=== PATIENT | male | born 1995 | race Caucasian/White ===

== ENCOUNTER 2019-07-07 20:12 | Emergency (ER) | payer BC, SELFPAY ==
[2019-07-07 20:23] VITALS: BP 128/61; PULSE 80; RESP 18; TEMP 36.8; O2SAT 98; BMI 28.7
--- NOTE | 2019-07-07 20:33 | XR_ITS ---
PROCEDURE: XR HAND RT MIN 3V CLINICAL INDICATION: swollen Pain and swelling COMPARISON: No exams were available for comparison FINDINGS: No fracture or dislocation. No lytic or blastic change. There is normal mineralization. There are scattered faint areas of increased density within the soft tissues which may be due to calcification, foreign bodies, or artifact. Other findings:None. IMPRESSION: 1. No acute fracture. 2. Scattered faint densities within the soft tissues of the fingers. Dictated by: Berry Palencia MD 07/08/2019 05:59 Electronically signed by Berry Palencia MD in [place] 07/08/2019 05:59
--- NOTE | 2019-07-07 20:33 | XR_ITS ---
PROCEDURE: XR FOREARM RT 2V CLINICAL INDICATION: swollen Pain and swelling COMPARISON: No exams were available for comparison FINDINGS: No fracture or dislocation. No lytic or blastic change. There is normal mineralization. The joint spaces are well-preserved. No significant degenerative/arthritic changes. No erosive changes evident. Other findings:None. IMPRESSION: No acute findings. Dictated by: Berry Palencia MD 07/08/2019 05:55 Electronically signed by Berry Palencia MD in [place] 07/08/2019 05:55
[2019-07-07 20:42] LABS: Basophils # 0.1 K/mm3 (0-0.2); Basophils % 0.6 % (0.1-2.0); Eosinophils # 0.3 K/mm3 (0.0-0.4); Eosinophils % 3.1 % (0.1-12.0); Hematocrit 39.8 % (42.0-52.0); Hemoglobin 12.9 g/dL (14.1-18.0); Lymphocytes # 3.1 K/mm3 (0.7-4.5); Lymphocytes % 30.5 % (10-50); Mean Corpuscular HGB Conc 32.5 g/dL (31.8-35.4); Mean Corpuscular Volume 89.3 fl (80-94); Mean Platelet Volume 8.1 fl (7.4-10.4); Monocytes # 0.7 K/mm3 (0.1-1.0); Monocytes % 6.5 % (1.7-9.3); Neutrophils % 59.3 % (37.0-80.0); Platelet Count 316 K/mm3 (142-424); Red Blood Count 4.45 M/mm3 (4.60-6.20); Red Cell Distribution Width 13.2 % (11.5-17.5); White Blood Count 10.1 K/mm3 (4.8-10.8)
[2019-07-07 20:45] LABS: Microscopic, Urine URINE MICROSCOPIC (MICROSCOPIC)
[2019-07-07 20:47] LABS: Appearance,Urine CLEAR (Clear); Bilirubin,Urine Negative (Negative); Blood, Urine Negative (Negative); Color,Urine YELLOW (Yellow); Glucose,Urine (UA) Negative (Negative); Ketones,Urine Negative (Negative); Leukocyte Esterase,Urine Negative (Negative); Nitrate,Urine Negative (Negative); Protein,Urine Negative (Negative); Urobilinogen,Urine 0.2 EU/dl (0.2)
[2019-07-07 20:47] LABS: Chloride 104 mmol/L (98-107); Potassium 3.9 mmoL/L (3.5-5.1); Sodium 139 mmol/L (136-145)
[2019-07-07 20:49] LABS: Alanine Aminotransferase 30 U/L (12-78); Aspartate Amino Transferase 27 U/L (17-59); Blood Urea Nitrogen 10 mg/dl (9-20); Creatinine Clearance Estimated 190 mL/min (50-200); Estimated Glomerular Filt Rate 106 ml/min (>60); GFR (African American) 128 ML/MIN (>60)
[2019-07-07 20:50] LABS: Albumin Level 4.5 g/dl (3.5-5.0); Albumin/Globulin Ratio 1.7 (1.1-1.8); Alkaline Phosphatase 62 U/L (38-126); Anion Gap 13.9 mEq/L (5-15); Bilirubin,Total 0.3 mg/dl (0.2-1.3); Calcium 9.3 mg/dl (8.4-10.2); Carbon Dioxide 25 mmol/L (22.0-30.0); Globulin 2.7 g/dL (1.3-3.2); Glucose 102 mg/dl (74-100); Total Protein,Serum 7.2 g/dl (6.3-8.2); Uric Acid 4.7 mg/dl (3.5-8.5)
[2019-07-07 20:55] LABS: C-Reactive Protein 1.9 mg/L (0-4)
[2019-07-07 20:59] LABS: Bacteria,Urine Trace /lpf; Squamous Epithelial Cell,Urine Occasional #/hpf (0-5); WBC,Urine Occasional #/hpf (0-3)
[2019-07-07 21:12] LABS: Erythrocyte Sedimentation Rate 24 mm/hr (0-15)
[2019-07-07 21:43] VITALS: BP 131/62; PULSE 78; RESP 16; O2SAT 98
--- NOTE | 2019-07-07 21:55 | HMH.EDUPEXT ---
ED Disposition Clinical Impression: Tenosynovitis of right wrist Disposition: Home, Self-Care Condition on Discharge: Good Instructions: DI for Tenosynovitis Additional Instructions: see pcp for follow up and wear splint Prescriptions: predniSONE [Prednisone 20mg Tab] 20 mg PO BID #10 tab Transmission Status: Pending to [facility] Ketorolac Tromethamine [Toradol 10mg tablet] 10 mg PO Q6H 5 Days #10 tab Transmission Status: Pending to [facility] Referrals: Provider,Referral, [Primary Care Provider] - - Critical Care Critical Care Time: No Attestation: On 07/07/19, the high probability of a clinically significant, sudden or life threatening deterioration of the following system(s) required my full and direct attention, intervention and personal management. The time I documented below is in addition to time spent performing reported procedures but includes the following listed in this critical care notation. Medical Decision Making - Medical Records Medical records reviewed: Yes: I reviewed the patient's medical records. - Denis Inquiry Pt receiving controlled substance: No Vital Signs: 07/07/19 20:23 Temperature 98.2 F Temperature Source Oral Pulse Rate [Right Brachial] 80 Respiratory Rate 18 Blood Pressure [Right Arm] 128/61 Blood Pressure Mean [Right Arm] 83 Blood Pressure Source [Right Arm] Automatic Cuff Blood Pressure Position [Right Arm] Sitting 02 Sat by Pulse Oximetry 98 Oxygen Delivery Method Room Air - Lab Data Lab results reviewed: Yes: I reviewed the patient's lab results. Lab Results 07/07/19 20:30: WBC 10.1, RBC 4.45 L, Hgb 12.9 L, Hct 39.8 L, MCV 89.3, MCH 29.0, MCHC 32.5, RDW 13.2, Plt Count 316, MPV 8.1, Neut % (Auto) 59.3, Lymph % (Auto) 30.5, Williams % (Auto) 6.5, Eos % (Auto) 3.1, Baso % (Auto) 0.6, Neut # (Auto) 6.0, Lymph # (Auto) 3.1, [place] # (Auto) 0.7, Eos # (Auto) 0.3, Baso # (Auto) 0.1, ESR 24 H 07/07/19 20:30: Sodium 139, Potassium 3.9, Chloride 104, Carbon Dioxide 25, Anion Gap 13.9, BUN 10, Creatinine 0.90, Estimated Creat Clear 190, Estimated GFR 106, Est GFR ( Amer) 128, Glucose 102 H, Uric Acid 4.7, Calcium 9.3, Total Bilirubin 0.3, AST 27, ALT 30, Alkaline Phosphatase 62, C-Reactive Protein 1.9, Total Protein 7.2, Albumin 4.5, Globulin 2.7, Albumin/Globulin Ratio 1.7 07/07/19 20:30: Lactate 1.0 07/07/19 20:40: Urine Color Yellow, Urine Appearance Clear, Urine pH 7.0, Ur Specific [place] 1.020, Urine Protein Negative, Urine Glucose (UA) Negative, Urine Ketones Negative, Urine Blood Negative, Urine Nitrate Negative, Urine Bilirubin Negative, Urine Urobilinogen 0.2, Ur Leukocyte Esterase Negative, Urine WBC Occasional, Ur Squamous Epith Cells Occasional, Urine Bacteria Trace Result diagrams: 07/07/19 20:30 07/07/19 20:30 Orders (Tests/Meds): ED MEDICATIONS Generic Name Dose Route Start Last Admin Trade Name Freq PRN Reason Stop Dose Admin Sodium Chloride 1,000 mls @ 999 mls/hr 07/07/19 20:45 07/07/19 21:33 Sod Chlor 0.9% 1000ml Bag IV 07/07/19 21:45 999 mls/hr .Q1H1M ABIOLA Administration Discontinued Medications Generic Name Dose Route Start Last Admin Trade Name Freq PRN Reason Stop Dose Admin Ketorolac Tromethamine 30 mg 07/07/19 21:33 07/07/19 21:33 Toradol 30mg/Ml Vial IV 07/07/19 21:34 30 mg ONCE ONE Administration Methylprednisolone Sodium Succinate 125 mg 07/07/19 21:46 Solu-Medrol 125mg/2ml Vial IV 07/07/19 21:47 ONCE ONE ORDERS Category Date Time Status XR forearm RT 2V Stat Exams 07/07/19 20:33 Taken XR hand RT min 3V Stat Exams 07/07/19 20:33 Taken Blood Culture Stat Micro 07/07/19 20:30 Received - Radiology Data #1 Image(s): Forearm, Hand Image Reviewed: Yes I reviewed the patient's radiology image Preliminary Findings: No Fracture Seen Upper Extremity HPI - General Chief Complaint: Extremity Injury, Upper Stated Complaint: pain and stifness
[2019-07-07 22:09] VITALS: BP 125/58; PULSE 72; RESP 16; TEMP 36.8; O2SAT 98
== END 2019-07-07 22:14 | disposition home or self-care (01) ==
PROVIDERS: Emergency Provider Emergency Medicine
DX: M65.831 Other synovitis and tenosynovitis, right forearm (principal); Z88.0 Allergy status to penicillin; Z88.5 Allergy status to narcotic agent
CPT/HCPCS: 29125; 73090; 73130; 80053; 81001; 83605; 84550; 85025; 85651; 86140; 87040; 96365; 96375; 99283; 99284

== ENCOUNTER 2024-12-31 00:13 | Emergency (ER) | payer MEDICAID, SELFPAY ==
[2024-12-31] VITALS (8 sets, daily range): BP systolic 138–155; BP diastolic 78–93; PULSE 78–88; RESP 11–17; TEMP 36.6; O2SAT 94–99; BMI 39.4
--- NOTE | 2024-12-31 00:11 | ECG_ITS ---
APPROVED REPORT Exam: Resting ECG HR:80 bpm ECG Measurements Heart Rate 80 AXES TX 162 P 68 QRSd 108 QRS 80 QT 366 T 47 QTc 402 Conclusion SINUS RHYTHM NORMAL ECG UNCONFIRMED REPORT Electronically signed by : TAINA LONGORIA, 01/02/2025 02:14:20
--- NOTE | 2024-12-31 00:15 | XR_ITS ---
PROCEDURE INFORMATION: Exam: XR Chest Exam date and time: 12/31/2024 12:26 AM Age: 29 years old Clinical indication: Pain; Shortness of breath; Chest pressure; Additional info: Cp, SOA TECHNIQUE: Imaging protocol: Radiologic exam of the chest. Views: 1 view. Total images: 1 COMPARISON: No relevant prior studies available. FINDINGS: Lungs: Unremarkable. No consolidation. No pulmonary vascular congestion or edema. Pleural spaces: Unremarkable. No pleural effusion. No pneumothorax. Heart/Mediastinum: Unremarkable. No cardiomegaly. No mediastinal widening or hilar enlargement. Bones/joints: Unremarkable. IMPRESSION: No radiographically acute cardiopulmonary process.
--- NOTE | 2024-12-31 00:16 | HMH.EDGENADL ---
Discharge Plan Disposition Patient Disposition: Home, Self-Care Prescriptions Prescriptions: No Action metronidazole 500 MG tablet 2,000 mg PO ONCE Qty: 4 0RF prednisone 20 MG tablet 20 mg PO BID Qty: 10 0RF ketorolac 10 MG tablet 10 mg PO Q6H 5 Days Qty: 10 0RF Referrals Follow up/Referrals: Gerri Atwood APRN [Primary Care Provider, Medical] - See instructions Activity Restrictions/Add. Instructions Additional Instructions/Restrictions: You likely have something going on with the esophagus or stomach, most likely GERD. Recommend trialing [id number] medication such as Tums or Maalox, or using Pepcid or omeprazole for stomach acid. If your symptoms continue, please follow-up with your PCP for further assessment. Recommend avoiding using too much ibuprofen, avoiding spicy and acidic foods as much as possible. Clinical Impressions Clinical Impression: Chest pain Stand Alone Forms Stand Alone Forms: Work/School Release Instructions Patient Instructions: DI for Gastroesophageal Reflux Disease (GERD) Print Language Print Language: Kiswahili Discharge ED Provider: Chris Mccullough Adult HPI General Chief complaint: Chest Pain Stated complaint: Chest Pain Time Seen by Provider: 12/31/24 00:15 History of Present Illness HPI narrative: 29-year-old male without significant past medical history presents for chest pain. He reports it has been ongoing for last few days, associated with some shortness of breath. No history of cardiac or lung pathology. No history of clots in the past. He does report occasional cocaine use, last use yesterday. Related Data Previous Rx's ?Medication ?Instructions ?Recorded metronidazole 500 mg tablet 2,000 mg (4 x 500 mg) PO ONCE #4 12/15/18 tabs ketorolac 10 mg tablet 10 mg PO Q6H 5 days #10 tabs 07/07/19 prednisone 20 mg tablet 20 mg PO BID #10 tabs 07/07/19 Allergies Allergy/AdvReac Type Severity Reaction Status Date / Time codeine Allergy Verified 12/15/18 14:35 Penicillins Allergy Verified 07/10/18 11:40 [facility] Disclaimer: The information contained in this section may have been updated after the patient was seen, as this information can be updated by other users. Social History Smoking Status: Unknown if ever smoked alcohol intake: current current occupational status: other Travel in the last 8 weeks?: None Other Medical History Have you received the Flu Vaccine for this season: Yes Have you received the Pneumonia Vaccine: Yes ROS Obtained: Yes All systems reviewed & no additional complaints except as documented Physical Exam General General appearance: alert and in no apparent distress Head Head exam: atraumatic and normocephalic Eye Eye exam: Present normal appearance, PERRL and EOMI ENT ENT exam: Present normal oropharynx and normal external ear exam Neck Neck exam: Present normal inspection and full ROM Chest Chest inspection: Present normal inspection and symmetric chest wall rise; Absent tenderness Respiratory Respiratory exam: Present normal lung sounds bilaterally; Absent respiratory distress Cardiovascular Cardiovascular exam: Present regular rate and normal rhythm Abdominal Exam Abdominal exam: Present soft; Absent distention, tenderness or guarding Extremities Exam Extremities exam: Present normal inspection; Absent edema or joint swelling Back Exam Back exam: Present normal inspection; Absent tenderness Neurological Exam Neurological exam: Present alert and oriented X3; Absent motor sensory deficit Psychiatric Psychiatric exam: Present normal affect and normal mood Skin Skin exam: Present warm, dry and normal color Lymphatic Lymphatic Findings: no adenopathy Medical Decision Making Medical Records Medical records reviewed: Yes I reviewed the patient's medical records. Screening: Per USPSTF and CDC recommendations, given the prevalence of disease in our region, it is our hospital?s policy to screen for HIV and viral Hepatitis for all patients aged 18 and over and those with ongoing risk factors. Denis Inquiry Pt receiving controlled substance: No Denis was queried for this patient: No Vital Signs: 12/31/24 00:17 12/31/24 00:17 12/31/24 00:19 Temperature 97.9 F Temperature Source Oral Pulse Rate 86 83 Pulse Rate [Left] 86 Respiratory Rate 14 14 Blood Pressure Blood Pressure [Right Arm] 146/93 H Blood Pressure Mean Blood Pressure Mean [Right Arm] 110 Blood Pressure Source Blood Pressure Position 02 Sat by Pulse Oximetry 99 97 Oxygen Delivery Method Room Air 12/31/24 00:30 12/31/24 00:30 12/31/24 00:45 Temperature Temperature Source Pulse Rate 78 85 Pulse Rate [Left] Respiratory Rate 13 17 Blood Pressure 138/83 Blood Pressure [Right Arm] Blood Pressure Mean 97 Blood Pressure Mean [Right Arm] Blood Pressure Source Blood Pressure Position 02 Sat by Pulse Oximetry 97 97 Oxygen Delivery Method 12/31/24 01:00 12/31/24 01:01 12/31/24 01:01 Temperature Temperature Source Pulse Rate 84 79 Pulse Rate [Left] Respiratory Rate 15 13 Blood Pressure 155/78 H Blood Pressure [Right Arm] Blood Pressure Mean 95 Blood Pressure Mean [Right Arm] Blood Pressure Source Blood Pressure Position 02 Sat by Pulse Oximetry 94 L 97 Oxygen Delivery Method 12/31/24 01:15 12/31/24 01:23 Temperature 97.9 F Temperature Source Oral Pulse Rate 88 86 Pulse Rate [Left] Respiratory Rate 11 L 13 Blood Pressure 155/78 H Blood Pressure [Right Arm] Blood Pressure Mean Blood Pressure Mean [Right Arm] Blood Pressure Source Automatic Cuff Blood Pressure Position Supine 02 Sat by Pulse Oximetry 96 Oxygen Delivery Method Room Air Lab Data Lab results reviewed: Yes I reviewed the patient's lab results. Lab Results 12/31/24 00:13: WBC 13.0 H, RBC 4.92, Hgb 14.4, Hct 43.9, MCV 89.2, MCH 29.3, MCHC 32.8, RDW 13.2, Plt Count 372, MPV 10.2, Neut % (Auto) 59.9, Lymph % (Auto) 30.5, [place] % (Auto) 6.6, Eos % (Auto) 2.4, Baso % (Auto) 0.4, Neut # (Auto) 7.8, Lymph # (Auto) 4.0, [place] # (Auto) 0.9, Eos # (Auto) 0.3, Baso # (Auto) 0.1, Sodium 142, Potassium 3.7, Chloride 103, Carbon Dioxide 28, Anion Gap 14.7, BUN 15, Creatinine 0.90, Estimated Creat Clear 249, Estimated GFR 101, Est GFR ( Amer) 122, Glucose 97, Calcium 8.8, Total Bilirubin 0.9, AST 36, ALT 22, Alkaline Phosphatase 98, Troponin I < 0.01, Total Protein 8.3 H, Albumin 5.4 H, Globulin 2.9, Albumin/Globulin Ratio 1.9 H, HIV Ag/Ab Combo Qual Negative 12/31/24 00:13 12/31/24 00:13 Orders (Tests/Meds): ED MEDICATIONS Discontinued Medications Generic Name Dose Route Start Last Admin Trade Name Freq PRN Reason Stop Dose Admin Acetaminophen 1,000 mg 12/31/24 00:15 12/31/24 00:22 Acetaminophen 500mg Tab PO 12/31/24 00:16 1,000 mg ONCE ONE Administration Belladonna Alkaloids 60 ml 12/31/24 00:15 12/31/24 00:22 Belladonna Alkaloids 60 Ml Ml PO 12/31/24 00:16 60 ml ONCE ONE Administration Ketorolac Tromethamine 30 mg 12/31/24 00:15 12/31/24 00:22 Ketorolac 30mg/Ml Vial IV 12/31/24 00:16 30 mg ONCE ONE Administration ORDERS Category Date Time Status CXR --portable [XR chest portable] Stat Exams 12/31/24 00:15 Completed CBC w/Auto Diff [Complete Blood Count Auto Diff] Stat Lab 12/31/24 00:13 Completed CMP [Comprehensive Metabolic Panel] Stat Lab 12/31/24 00:13 Completed HIV Combo Stat Lab 12/31/24 00:13 Completed Hepatitis C Ab Qual. W/ RFX Stat Lab 12/31/24 00:13 Received Troponin I Q3H Lab 12/31/24 00:13 Completed Troponin I Q3H Lab 12/31/24 03:30 Ordered HEART Score History (anamnesis): Slightly suspicious ECG: Normal Age: <45 years Risk factors: No known risk factors Troponin: </= normal limit HEART Score: 0 Medical Decision Narrative: 29-year-old male without significant past medical history presents for chest pain for the last couple of days. History was obtained via interactive discussion with patient, family. On arrival, patient is [afebrile, hemodynamically stable, satting appropriately, alert, oriented x4, GCS 15], moving all extremities spontaneously. Full physical exam performed and significant for no significant physical exam abnormality Differential includes but is not limited to ACS, PE, GERD, musculoskeletal pain, Prinzmetal angina. Patient was given Tylenol Toradol and GI cocktail for symptomatic management and correction of underlying abnormalities. Workup initiated including CBC CMP troponin chest x-ray EKG. Patient is PERC negative and does not require D-dimer. On re-evaluation, patient reports complete symptomatic resolution after administration of GI cocktail Laboratory workup independently interpreted by me and significant for negative initial troponin, no significant renal dysfunction. Imaging independently interpreted by me and significant for clear lungs bilateral. See radiology read for full review of final results. EKG independently interpreted by me and significant for normal sinus rhythm, no evidence of ischemia, ventricular rate of 80. Interpreted at 0011 Given patient history, exam and workup, patient's presentation most likely represents GERD/esophageal pathology. No significant concern for emergent pathology at this time given negative workup and symptomatic improvement after GI cocktail. Considered obtaining second troponin but I do not think it is required at this time given age, comorbidities, presentation and workup. Patient encouraged to take [id number] medications for GERD and follow-up with PCP if symptoms are worsening or not improving. Procedures Risk/Benefits of Procedure(s) Were Explained: Yes Critical Care Critical Care Time Critical Care Time: No
[2024-12-31] MEDS: KETOROLAC 30MG/ML VIAL 30 MG IV (00:22)
[2024-12-31] MEDS: ACETAMINOPHEN 500MG TAB 1000 MG PO (00:22)
[2024-12-31] MEDS: BELLADONNA ALKALOIDS 60 ML ML PO (00:22)
[2024-12-31 00:24] LABS: Hematocrit 43.9 % (42.0-52.0); Hemoglobin 14.4 g/dL (14.1-18.0); Immature Granulocytes % 0.2 %; Mean Corpuscular HGB Conc 32.8 g/dL (31.8-35.4); Mean Corpuscular Hemoglobin 29.3 pg (27.0-31.2); Mean Corpuscular Volume 89.2 fl (80-94); Nucleated Red Blood Cells % 0 %; Platelet Count 372 K/mm3 (142-424); Red Blood Count 4.92 M/mm3 (4.60-6.20); Red Cell Distribution Width-SD 43.2 fL; White Blood Count 13.0 K/mm3 (4.8-10.8)
[2024-12-31 00:32] LABS: Albumin Level 5.4 g/dl (3.5-5.0); Chloride 103 mmol/L (98-107); Potassium 3.7 mmoL/L (3.5-5.1); Sodium 142 mmol/L (136-145)
[2024-12-31 00:35] LABS: Alanine Aminotransferase 22 U/L (12-78); Albumin/Globulin Ratio 1.9 (1.1-1.8); Alkaline Phosphatase 98 U/L (38-126); Anion Gap 14.7 mEq/L (5-15); Aspartate Amino Transferase 36 U/L (17-59); Bilirubin,Total 0.9 mg/dl (0.2-1.3); Blood Urea Nitrogen 15 mg/dl (9-20); Carbon Dioxide 28 mmol/L (22.0-30.0); Creatinine Clearance Estimated 249 mL/min (50-200); Creatinine,Serum 0.90 mg/dl (0.66-1.25); Estimated Glomerular Filt Rate 101 ml/min (>60); GFR (African American) 122 ML/MIN (>60); Globulin 2.9 g/dL (1.3-3.2); Total Protein,Serum 8.3 g/dl (6.3-8.2)
[2024-12-31 00:36] LABS: Calcium 8.8 mg/dl (8.4-10.2); Glucose 97 mg/dl (74-100)
[2024-12-31 00:50] LABS: Troponin I < 0.01 ng/ml (0.00-0.034)
[2024-12-31 01:31] LABS: Hepatitis C Ab Qual. W/ RFX NEGATIVE (Negative)
== END 2024-12-31 01:31 | disposition home or self-care (01) ==
PROVIDERS: Emergency Provider Emergency Medicine; PCP Nurse Practitioner Family
DX: R07.9 Chest pain, unspecified (principal); R06.02 Shortness of breath
CPT/HCPCS: 71045; 80053; 84484; 85025; 86803; 87389; 93005; 96374; 99285; J1885